=== PATIENT | male | born 1990 | race American Indian/Alaskan Native ===

== ENCOUNTER 2023-05-24 12:11 | Emergency (ER) | payer MEDICAID ==
[~2023-05-24] VITALS: Ht 180.3 cm; Wt 92.1 kg
[2023-05-24 13:36] VITALS: BP 148/90
== END 2023-05-24 13:37 | disposition home or self-care (01) ==
LOC: ED 12:11
DX: H92.11 Otorrhea, right ear (principal)
CPT/HCPCS: 99282